=== PATIENT | female | born 1950 | race Caucasian/White ===

== ENCOUNTER 2018-02-19 07:26 | Inpatient (IN) | payer OTHER ==
[~2018-02-19] VITALS: Ht 160 cm; Wt 88.9 kg
[2018-02-28] MEDS ORDERED: INTEGRA PLUS C1 EACH PO (09:24)
[2018-02-28] MEDS ORDERED: ELIQUIS2.5 MG PO (09:24)
[2018-02-28] MEDS ORDERED: TRAM1TAB98 PO (09:24)
== END 2018-02-28 13:10 | DRG 470 ==
LOC: SURG 02-25 04:47 → O/R 02-25 04:47 → SURH 02-25 08:00 → SURG 02-25 19:29
PROVIDERS: Orthopaedic Surgery Sports Medicine
PROC: 0SRD0J9 Replacement of Left Knee Joint with Synthetic Substitute, Cemented, Open Approach (ICD-10-PCS; principal; 2018-02-25 16:00)
DX: M17.12 Unilateral primary osteoarthritis, left knee (principal)

== ENCOUNTER 2023-03-06 07:15 | Inpatient (IN) | payer OTHER ==
[~2023-03-06] VITALS: Ht 160 cm; Wt 75.3 kg
[~2023-03-06 07:15] MED LIST: ELIQUIS2.5 MG PO; INTEGRA PLUS C1 EACH PO; TRAM1TAB98 PO
[2023-03-06] MEDS ORDERED: CARAFATE1 GM PO (08:20)
[2023-03-06] MEDS ORDERED: PREVACID15 M1 PO (08:20)
[2023-03-12] MEDS ORDERED: CLOTRIMAZOLE-BE15 G1 (10:39)
[2023-03-12 16:54] LABS: HEMATOCRIT 31.8 % (36.0-45.00); HEMOGLOBIN 10.5 g/dL (12.0-15.00); RED BLOOD COUNT 3.1 M/uL (4.00-6.00)
[2023-03-13 07:58] LABS: HEMATOCRIT 27.7 % (36.0-45.00); HEMOGLOBIN 9.5 g/dL (12.0-15.00); MEAN CELL VOLUME 100.6 fL (80.00-100.00); MEAN CORPUSCULAR HEMOGLOBIN 34.6 pg (27.00-32.0); MEAN CORPUSCULAR HGB CONC 34.4 g/dl (32.0-36.0); PLATELET COUNT 214 K/uL (150-450); RED BLOOD COUNT 2.76 M/uL (4.00-6.00); RED CELL DISTRIBUTION WIDTH 15.1 % (11.5-14.5)
[2023-03-14] MEDS ORDERED: TRAM1TAB98 PO (06:34)
[2023-03-14] MEDS ORDERED: XARELTO10 MG PO (06:34)
[2023-03-14] MEDS ORDERED: INTEGRA PLUS C1 EACH PO (06:34)
[2023-03-14] MEDS ORDERED: BACTRIM DS TAB1 EACH PO (06:34)
[2023-03-14 07:06] LABS: HEMATOCRIT 24.2 % (36.0-45.00); MEAN CELL VOLUME 99.3 fL (80.00-100.00); MEAN CORPUSCULAR HGB CONC 34.9 g/dl (32.0-36.0); PLATELET COUNT 187 K/uL (150-450); RED BLOOD COUNT 2.44 M/uL (4.00-6.00); RED CELL DISTRIBUTION WIDTH 14.6 % (11.5-14.5)
[2023-03-14 07:29] LABS: MEAN CORPUSCULAR HEMOGLOBIN 34.8 pg (27.00-32.0)
[2023-03-14 07:31] LABS: HEMOGLOBIN 8.5 g/dL (12.0-15.00)
[2023-03-15 14:52] LABS: HEMATOCRIT 30.6 % (36.0-45.00); HEMOGLOBIN 10.3 g/dL (12.0-15.00); MEAN CELL VOLUME 98.4 fL (80.00-100.00); MEAN CORPUSCULAR HEMOGLOBIN 33.2 pg (27.00-32.0); MEAN CORPUSCULAR HGB CONC 33.7 g/dl (32.0-36.0); PLATELET COUNT 188 K/uL (150-450); RED BLOOD COUNT 3.11 M/uL (4.00-6.00); RED CELL DISTRIBUTION WIDTH 16.3 % (11.5-14.5)
== END 2023-03-15 18:32 | DRG 470 ==
LOC: SURH 03-12 07:15 → O/R 03-12 08:19 → EDBD 03-12 08:19 → SURG 03-12 08:19 → SURH 03-12 15:00 → SURG 03-15 18:32
PROVIDERS: ADMIT Orthopaedic Surgery Sports Medicine; ATTEND Orthopaedic Surgery Sports Medicine
PROC: 0SRC0J9 Replacement of Right Knee Joint with Synthetic Substitute, Cemented, Open Approach (ICD-10-PCS; principal; 2023-03-12 15:00)
PROC: 30233N1 Transfusion of Nonautologous Red Blood Cells into Peripheral Vein, Percutaneous Approach (ICD-10-PCS; 2023-03-14)
DX: M17.11 Unilateral primary osteoarthritis, right knee (principal); D64.9 Anemia, unspecified; Z20.822 Contact with and (suspected) exposure to COVID-19